=== PATIENT | female | born 1975 | race Caucasian/White ===

== ENCOUNTER 2021-05-05 17:41 | Emergency (ER) | payer BC ==
[~2021-05-05] VITALS: Ht 172.7 cm; Wt 79.8 kg
[2021-05-05] MEDS ORDERED: HUMIRA40 MG/0.2 (17:49)
[2021-05-05] MEDS ORDERED: ECHINAC-GOLDEN1 EACH (17:50)
[2021-05-05] MEDS ORDERED: IBU800 MG PO (20:51)
== END 2021-05-05 21:58 | disposition home or self-care (01) ==
LOC: ER 17:41
DX: S62.616A Displaced fracture of proximal phalanx of right little finger, initial encounter for closed fracture (principal); W18.39XA Other fall on same level, initial encounter; Y93.89 Activity, other specified; Y92.89 Other specified places as the place of occurrence of the external cause; Y99.8 Other external cause status